=== PATIENT | male | born 1995 ===

== ENCOUNTER 2018-01-04 13:33 | Emergency (ER) | payer OTHER ==
--- NOTE | 2018-01-04 17:36 | UC ---
HPI Febrile Illness - HPI Summary HPI Summary: 22 y/o male presents to the urgent care c/o weakness on his legs for the past week. Pt reports fever for one day last week. He took aspirin and since then he started to fell weakness below his knees at times. He states he works in a [employer] since 06/2017 when he came from [place]. He works for long period of times standing and goes w/o eating at times. He feels his legs are shaking at times. Pt denies rash, neck pain , PALOMO, URI symptoms, urinary symptoms, back pain, dizziness, SOB, chest pain, abdominal pain, N/V/D, visual disturbance, No recent travel in the past 3 months, no Hx of STDs, No sick contacts. - History of Current Complaint Hx Obtained From: Patient Onset/Duration: Started Weeks Ago - 1 week ago Timing: Constant Initial Severity: Mild Current Severity: Moderate Pain Intensity: 0 Pain Scale Used: 0-10 Numeric Aggravating Factors: Nothing Alleviating Factors: Nothing Associated Signs and Symptoms: Other: - one day of fecer 1 week ago - Risk Factors Pseudomonas Risk Factors: Negative Serious Bacterial Infection Risk Factors: Negative <Park Wright - Last Filed: 01/05/18 16:32> <Selam Phelps - Last Filed: 01/06/18 12:57> - History of Current Complaint Chief Complaint: UCGeneralIllness Time Seen by Provider: 01/04/18 16:52 - Allergy/Home Medications Allergies/Adverse Reactions: Allergies Allergy/AdvReac Type Severity Reaction Status Date / Time No Known Allergies Allergy Verified 01/04/18 17:01 Home Medications: Home Medications NK [No Home Medications Reported] 01/04/18 [History Confirmed 01/04/18] PMH/Surg Hx/FS Hx/Imm Hx Previously Healthy: Yes - Pt denies PMHX - Surgical History Surgical History: None - Family History Known Family History: Positive: None - Pt denies FMHX - Social History Occupation: Employed Full-time Lives: Alone Alcohol Use: Occasionally Substance Use Type: None Smoking Status (MU): Never Smoked Tobacco - Immunization History Vaccination Up to Date: Yes <Park Wright - Last Filed: 01/05/18 16:32> Review of Systems Constitutional: Fever - first day of symptoms, Fatigue Skin: Negative Eyes: Negative ENT: Negative Respiratory: Negative Cardiovascular: Negative Gastrointestinal: Negative Genitourinary: Negative Motor: Weakness - B/L knees and B/L lower legs Neurovascular: Negative Musculoskeletal: Negative Neurological: Negative Psychological: Negative Is Patient Immunocompromised?: No All Other Systems Reviewed And Are Negative: Yes <SavannajaPark diggs - Last Filed: 01/05/18 16:32> Physical Exam Triage Information Reviewed: Yes Vital Signs: Initial Vital Signs Temp 98.6 F 01/04/18 16:54 Pulse 85 01/04/18 16:54 Resp 15 01/04/18 16:54 BP 115/70 01/04/18 16:54 Pulse Ox 100 01/04/18 16:54 - Additional Comments Vital Signs Reviewed: Yes General: well developed, well nourished male sitting in the examining table w/o any apparent distress Eyes: Positive: Conjunctiva Clear - PERRLA, EOMI, fundi grossly normal ENT: Positive: Normal ENT inspection, Hearing grossly normal, Pharynx normal, TMs normal Neck: Supple, trachea is midline, No anterior cervical lymphadenopathy, no JVD , no carotid bruit, no c-spine tenderness, neck with full ROM. No meningeal signs, no Kernig's or brudzinskis signs. Respiratory: Positive: Chest nontender, Lungs clear, Normal breath sounds, No respiratory distress Cardiovascular: Positive: RRR, No Murmur, Pulses Normal, Brisk Capillary Refill Abdomen Description: Positive: Nontender, No Organomegaly, Soft. Negative: CVA Tenderness (R), CVA Tenderness (L) Bowel Sounds: Positive: Present Musculoskeletal: Positive: Strength Intact, No Edema, B/L Knees and lower extremities: Pt is able to bear weight and ambulate w/o limping. No surface trauma, soft tissue swelling, or obvious effusion. No overlying erythema or warmth. No obvious asymmetry or deformity when both knees and legs are compared. FROM, No tenderness to palpation of the patella, no effusion or ballottement. No tenderness over the infrapatellar tendon.NO tenderness over the medial joint line, No tenderness over the medial or lateral tibial plateaus. No tenderness over the proximal fibular head, No tenderness, fullness or mass of the popliteal fossa. No quadriceps tenderness. No laxity of the ACL. PCL, MCL, or LCL. no collateral ligament laxity to valgus or varus stress. Negative Afia/Drawer sign. Negative Adi. Distal motor and neurovascular status intact. Neurological Exam: A&O x4, GCS 15, CN II-XII grossly intact. Motor and sensory exam nonfocal. Reflexes are symmetric. Speech is clear and gait steady. Psychological Exam: Normal Skin Exam: Normal <Park Wright - Last Filed: 01/05/18 16:32> Vital Signs: Initial Vital Signs Temp 98.6 F 01/04/18 16:54 Pulse 85 01/04/18 16:54 Resp 15 01/04/18 16:54 BP 115/70 01/04/18 16:54 Pulse Ox 100 01/04/18 16:54 <Selam Phelps - Last Filed: 01/06/18 12:57> Course/Dx - Course Course Of Treatment: 22 y/o male presents to the urgent care c/o weakness on his legs for the past week. Pt reports fever for one day last week. He took aspirin and since then he started to fell weakness below his knees at times. He states he works in a [employer] since 06/2017 when he came from [place]. He works for long period of times standing and goes w/o eating at times. He feels his legs are shaking at times. Pt denies rash, neck pain , PALOMO, URI symptoms, urinary symptoms, back pain, dizziness, SOB, chest pain, abdominal pain, N/V/D , visual disturbance, No recent travel in the past 3 months, no Hx of STDs, No sick contacts.Hx obtained. PE: WNL, neurological exam WNL. FSG ordered: 101mg/ dl. DR Phelps consulted on Pt's symptoms and she recommended blood work: CBC, CMP, TSH, Mg since Pt doesn't have PCP at this moment and referral to a [facility] PCP in 2-3 days for further management.Pt explained theimportance of f/u w/ a PCP for fuether managment on his symptoms. Blood sent to lab and Pt will be notified of any abnormality. Pt advised to increase fluid intake, eat well, avoid strenuous exercise. Avoid long periods w/o eating anything and avoid standing for long peirods of time. Pt understood and agreed w/ paln of care. Pt left the clinic ambulating , A&OX3 and hemodynamically stable. - Febrile Illness Differential Diagnoses: Encephalitis, Fever of Unknown Origin, Meningitis, Viremia, Other: - hypoglycemia,Guillain-Plainville syndrome - Diagnoses Clinic Provider Diagnoses: 1-B/L lower extremity weakness - Provider Notifications Discussed Patient Care With: Selam Phelps - DR Phelps agreed w/ Pt's plan of care <Park Wright - Last Filed: 01/05/18 16:32> Discharge <Park Wright - Last Filed: 01/05/18 16:32> <Selam Phelps - Last Filed: 01/06/18 12:57> - Discharge Plan Condition: Stable Disposition: HOME Patient Education Materials: Weakness (ED) Forms: *Work Release Referrals: [facility] PHYSICIAN REFERRAL [Outside] - 2 Days Additional Instructions: 1- Blood was sent to lab to r/o any abnormality. You will be notified of any abnormal result. 2-Please f/u w/ one of PCP from the [facility] center referral for further evaluation and treatment 3-Please do not go long periods of time w/o eating. East small portions every 2hrs and increase fluid intake and rest. Avoid standing for long periods of time. 4-If symptoms worsen and fever developes, SOB, PALOMO or rash please gpo immediately to the ER for further evaluation and treatment. Attestation Statement User Type: Provider - I was available for consult. This patient was seen by the YASH. The patient was not presented to, seen by, or examined by me. Ljj <Selam Phelps - Last Filed: 01/06/18 12:57>
[2018-01-04 19:51] LABS: ABS Basophils 0.1 10^3/ul (0-0.2); ABS Eosinophils 0.2 10^3/ul (0-0.6); ABS Lymphocytes 2.4 10^3/ul (1.0-4.8); ABS Monocytes 0.7 10^3/ul (0-0.8); ABS Neutrophils 4.8 10^3/ul (1.5-7.7); ABS Nucleated RBC 0 10^3/ul; Hematocrit 47 % (42-52); Hemoglobin 15.5 g/dl (14.0-18.0); Lymphocyte % 29.3 % (25-47); Mean Corpuscular HGB Conc 33 g/dl (31-36); Mean Corpuscular Hemoglobin 27 pg (27-31); Mean Corpuscular Volume 82 fL (80-94); Mean Platelet Volume 8 um3 (7.4-10.4); Nucleated Red Blood Cells % 0.1; Platelet Count 395 10^3/ul (150-450); Red Blood Count 5.74 10^6/ul (4.0-5.4); Red Cell Distribution Width 15 % (10.5-15); White Blood Count 8.1 10^3/ul (3.5-10.8)
[2018-01-04 20:06] LABS: EGFR Non-African American 92.6 (>60)
== END 2018-01-04 18:08 | disposition home or self-care (01) ==
LOC: UCCORT 13:33
DX: M62.81 Muscle weakness (generalized) (principal); R53.83 Other fatigue; Z72.89 Other problems related to lifestyle
CPT/HCPCS: 36415; 80053; 83735; 84443; 85025; 99201; G0463